=== PATIENT | male | born 1970 | race Caucasian/White ===

== ENCOUNTER 2022-03-06 01:27 | Inpatient (IN) | payer OTHER ==
[2022-03-06] MEDS ORDERED: LORazepam 2 MG/ML INJ ONE (02:30)
[2022-03-06] MEDS ORDERED: ONDANSETRON 4 MG/2 ML VIAL ONE (02:30)
[2022-03-06] MEDS ORDERED: SODIUM CHLORIDE 0.9% 1,000 ML BAG ONE (02:40)
[2022-03-06 06:02] LABS: ALT 61 U/L (4-49); AST 71 U/L (17-59); African American GFR (CKD) >90 (>60 ml/min/1.73 sqM); Albumin 4.5 g/dL (3.5-5.0); Albumin/Globulin Ratio 1.8; Alcohol <10 mg/dL; Alkaline Phosphatase 54 U/L (38-126); Anion Gap 11 mmol/L; Blood Urea Nitrogen 11 mg/dL (9-20); Calcium 9.5 mg/dL (8.4-10.2); Carbon Dioxide 26 mmol/L (22-30); Chloride 97 mmol/L (98-107); Globulin 2.5 g/dL; Glucose 88 mg/dL (74-99); Lipase 188 U/L (23-300); Magnesium 1.9 mg/dL (1.6-2.3); Non-African American GFR(CKD) >90 (>60 ml/min/1.73 sqM); Phosphorus 4.3 mg/dL (2.5-4.5); Sodium 134 mmol/L (137-145); Total Bilirubin 1.3 mg/dL (0.2-1.3)
[2022-03-06] MEDS ORDERED: LORazepam 2 MG/ML INJ IV PRN ×4 (06:17)
[2022-03-06 06:27] LABS: Basophils % (A) 1 %; Eosinophils # (A) 0.1 k/uL (0-0.7); Eosinophils % (A) 3 %; HCT 38.1 % (39.0-53.0); HGB 12.8 gm/dL (13.0-17.5); Lymphocytes % (A) 24 %; MCHC 33.7 g/dL (31.0-37.0); Macrocytosis Slight; Mean Platelet Volume 8.6; Monocytes # (A) 0.3 k/uL (0-1.0); Monocytes % (A) 6 %; Neutrophils # (A) 2.5 k/uL (1.3-7.7); Neutrophils % (A) 63 %; Platelet Count 226 k/uL (150-450); RBC 3.66 m/uL (4.30-5.90); RDW 12.3 % (11.5-15.5)
[2022-03-06] MEDS ORDERED: THIAMINE 100 MG/ML 2 ML VIAL IM STA (07:16)
[2022-03-06] MEDS: MULTIVITAMINS, THERA 1 EACH TAB PO SCH (09:08)
[2022-03-06] MEDS: FOLIC ACID 1 MG TAB PO SCH (09:08)
[2022-03-06] MEDS: THIAMINE 100 MG TAB PO SCH ×2 (09:09→09:11)
[2022-03-06] MEDS ORDERED: IBUPROFEN 600 MG TAB PO PRN (09:41)
--- NOTE | 2022-03-06 09:44 | P.HPIM ---
History of Present Illness This is a pleasant 52 years old male with no significant past medical history. Patient was sent from [place] for alcohol abuse and hallucination. Patient was lying in bed comfortable, sleepy and drowsy and he has received benzodiazepine in the morning shortly before meeting him which may contribute to his sleepiness. Patient himself states that he is been [place] for the last 23 days for alcohol withdrawal. He states that he drinks 3-4 drinks a day. He denies smoking or illicit tracts to me. He denies any chest pain or dyspnea. No headache or dizziness. No weakness or numbness complaints when I saw him. No blurred vision. He is been complaining of from slight primary umbilical abdominal pain about 1- 2/10 in severity this morning but completely resolved by the time I saw him. Abdomen soft. His been complained from some constipation but no vomiting and he tolerates diet. No urinary complaints like urgency or dysuria. On reviewing the record from [place] (patient has been feeling good with no symptoms. Patient has been complaining of from hallucination, branch of a spider is running around and when he turned on the line they disappeared. Also he saw ago under his bed and treated that he can touch. Also has been complaining that his hands has been turning into green color and then go back to their original color when the lights are turned on. Patient so more stress as well as well as an understandable auditory hallucination, he developed heard the word murder Labs showing normal WBCs 4.0 hemoglobin 12.8. Platelet count normal 226. Sodium 134. Risks of BMP is unremarkable Bilirubin 1.3 which is within the reference range. Slightly elevated liver enzymes AST 71 and ALT 61. Lipase normal at 188. Serum alcohol less than 10. Patient was started on CIWA protocol in ED Review of Systems Review of systems CONSTITUTIONAL: No fever, no malaise, no fatigue. HEENT: No recent visual problems or hearing problems. Denied any sore throat. CARDIOVASCULAR: No orthopnea, PND, no palpitations, no syncope. PULMONARY: No shortness of breath, no cough, no hemoptysis. GASTROINTESTINAL: No diarrhea, no nausea, no vomiting, no abdominal pain. Normoactive bowel sounds. NEUROLOGICAL: No headaches, no weakness, no numbness. HEMATOLOGICAL: Denies any bleeding or petechiae. GENITOURINARY: Denies any burning micturition, frequency, or urgency. MUSCULOSKELETAL/RHEUMATOLOGICAL: Denies any joint pain, swelling, or any muscle pain. ENDOCRINE: Denies any polyuria or polydipsia. Medications and Allergies Home Medications Medication Instructions Recorded Confirmed Type Acetaminophen Tab [Tylenol] 650 mg PO TID 03/06/22 03/06/22 History Calcium Carb/Mag Ox/Zinc Sulf 1 tab PO TID 03/06/22 03/06/22 History [Oux-Xya-Kzrq 334-134-5 mg Tab] Chlorpheniramine Maleate 4 mg PO QID PRN 03/06/22 03/06/22 History [Chlor-Trimeton] Ibuprofen [Motrin Ib] 600 mg PO Q6H PRN 03/06/22 03/06/22 History LORazepam [Ativan] 1 - 2 mg PO Q4H 03/06/22 03/06/22 History Loperamide HCl [Imodium A-D] 4 mg PO QID PRN 03/06/22 03/06/22 History Magnesium Hydroxide [Milk of 2,400 mg PO BID PRN 03/06/22 03/06/22 History Magnesia] Multivitamins, Thera [Multivitamin 1 tab PO DAILY 03/06/22 03/06/22 History (formulary)] Mylanta 30 ml PO Q4H PRN 03/06/22 03/06/22 History Thiamine [Vitamin B-1] 100 mg PO DAILY 03/06/22 03/06/22 History cloNIDine HCL [Catapres] 0.1 - 0.3 mg PO DAILY PRN 03/06/22 03/06/22 History ondansetron HCL [Zofran] 8 mg PO Q6H 03/06/22 03/06/22 History Allergies Allergy/AdvReac Type Severity Reaction Status Date / Time No Known Allergies Allergy Verified 03/06/22 07:13 Physical Exam GENERAL: The patient is alert and oriented x3, not in any acute distress. Well developed, well nourished. HEENT: Pupils are round and equally reacting to light. EOMI. No scleral icterus. No conjunctival pallor. Normocephalic, atraumatic. No pharyngeal erythema. No thyromegaly. CARDIOVASCULAR: S1 and S2 present. No murmurs, rubs, or gallops. PULMONARY: Chest is clear to auscultation, no wheezing or crackles. ABDOMEN: Soft, nontender, nondistended, normoactive bowel sounds. No palpable organomegaly. MUSCULOSKELETAL: No joint swelling or deformity. EXTREMITIES: No cyanosis, clubbing, or pedal edema. NEUROLOGICAL: Gross neurological examination did not reveal any focal deficits. SKIN: No rashes. no petechiae. Results CBC & Chem 7: 03/06/22 02:25 03/06/22 02:25 Labs: Abnormal Lab Results - Last 24 Hours (Table) 03/06/22 03/06/22 Range/Units 02:25 02:25 RBC 3.66 L (4.30-5.90) m/uL Hgb 12.8 L (13.0-17.5) gm/dL Hct 38.1 L (39.0-53.0) % MCV 104.0 H (80.0-100.0) fL Sodium 134 L (137-145) mmol/L Chloride 97 L (98-107) mmol/L AST 71 H (17-59) U/L ALT 61 H (4-49) U/L Assessment and Plan Assessment: Visual and auditory hallucinations Alcohol abuse at-risk of alcohol withdrawal and delirium tremens Moderately elevated liver enzymes most likely secondary to alcoholic affect possible Hypertension Plan: This is a pleasant 52 years old male with alcoholic intoxication Continue with CIWA protocol Continue with gentle hydration Psychiatry consult home worker consult Labs and medication were reviewed.. Continue same treatment. Continue with symptomatic treatment. Resume home medication. Monitor lytes and vitals. DVT and GI prophylaxis. Further recommendations as per clinical course of the patient DVT prophylaxis: Subcutaneous heparin GI Prophylaxis: Pepcid Prognosis is guarded
[2022-03-06] MEDS: ACETAMINOPHEN TAB 325 MG TAB PO SCH (18:35)
[2022-03-06] MEDS ORDERED: LORazepam 1 MG/0.5 ML VIAL IV PRN (22:44)
[2022-03-06] MEDS: LORazepam 1 MG/0.5 ML VIAL IV PRN (23:15)
[2022-03-06] MEDS ORDERED: ACETAMINOPHEN TAB 325 MG TAB PO PRN (23:24)
--- NOTE | 2022-03-07 01:35 | CONS ---
DATE OF SERVICE: 03/06/2022 CONSULTATION PURPOSE FOR CONSULTATION: Evaluate for confusion and hallucinations. HISTORY OF PRESENTING ILLNESS: The patient is a 52-year-old male. He was referred to [facility] from [place], where he was admitted for alcohol use disorder. According to the medical record, he was in [place] for the last 23 days for a treatment of alcohol withdrawal. He was drinking 3 to 4 drinks a day. Last evening, he apparently began having hallucinations, where he was hearing things and seeing things. He said that the hallucinations were quite intense and presented as a range of many different visions including seeing faces and then seeing monsters and then that evolving into his seen various insects. He said there were activities of spiders that were making webs that he picked up and handled. He reported this to staff, which precipitated his referral to [facility]. He stated to me that he had just entered [place] on Wednesday, which is not in line with the ED record. He says that he drinks about 3/4 of a 5th of alcohol per day. In addition, he smokes marijuana about 1 puff per week by his report. He reports no use of other abusive substances. When I talked to him today, he said that the hallucinations went on for about half an hour and then seemed to dissipate. He reported that he was not having any hallucinations since he has gotten to the hospital. His vital signs since being here have been within the normal range. He said best that he is aware he has not had any issues with his vital signs while he was at [place]. He notes that while at [place], he was started on Ativan. Currently, the patient is not reporting any significant issues with anxiety or depression. He is not reporting any hallucinations or delusional thinking. He is not currently on any psychotropic medications other than having been started on Ativan for detox. He acknowledges that he had some confusion and disorientation when he was at [place], where there was a short period where he was not exactly sure where he was or what the circumstances were. He says that has had also dissipated, and he did not recall any further periods where he was in confusion. The patient notes that he had stopped drinking some years back for about 2 weeks, he did that on his own. He notes that neither then or at any other time has he had any issues with hallucinations. He does not believe he has ever had a diagnosis of delirium tremens. He has not had seizures. MENTAL STATUS EXAM: The patient was sitting on the side of the bed. He gave good eye contact. When I came into the room, he was reading from a book, and that said he was not having trouble with comprehension. He gave a fairly good eye contact. He answered questions appropriately. His thoughts were clear. His affect was in a reasonable range. He seemed to have a relaxed if not friendly manner. His mood was even. He did not appear to be distressed or depressed. There was no indication of thought disorder. He was denying any issues with hallucinations or delusional thinking. He voiced no thoughts of harm. On cognitive exam, he was oriented x3 and alert. He knew the day and date. He was able to tell me the president. He was able to give me the days of the week in reverse order quickly without hesitation. ASSESSMENT: 52-year-old male apparently developed hallucinations either related to detox or alcohol withdrawal. The issues of thought disorder have dissipated. He would be appropriate to be referred back to [place]. He is not needing any further psychiatric intervention. He does not appear to require any psychotropic medications other than what would be indicated for a detox withdrawal protocol. MMODL / IJN: [id number] / MTDD
[2022-03-07] MEDS: LORazepam 1 MG/0.5 ML VIAL IV PRN ×8 (01:56→22:36)
[2022-03-07 08:52] LABS: Basophils # (A) 0.04 X 10*3/uL (0.00-0.10); Basophils % (A) 0.8 %; Eosinophils # (A) 0.12 X 10*3/uL (0.04-0.35); Eosinophils % (A) 2.3 %; HCT 40.1 % (39.6-50.0); HGB 13.4 g/dL (13.0-17.0); Immature Grans, Automated 0.4 %; Lymphocytes # (A) 1.36 X 10*3/uL (0.90-5.00); Lymphocytes % (A) 25.5 %; MCH 34.8 pg (27.0-32.0); MCHC 33.4 g/dL (32.0-37.0); MCV 104.2 fL (80.0-97.0); Mean Platelet Volume 10.3 fL (9.5-12.2); Monocytes # (A) 0.54 X 10*3/uL (0.20-1.00); Monocytes % (A) 10.1 %; NRBC Per 100 WBC 0 /100 WBCS (0.0-0.0); Neutrophils # (A) 3.25 X 10*3/uL (1.80-7.70); Neutrophils % (A) 60.9 %; Platelet Count 274 X 10*3/uL (140-440); RBC 3.85 X 10*6/uL (4.40-5.60); RDW 12.2 % (11.5-14.5); WBC 5.33 X 10*3/uL (4.50-10.00)
[2022-03-07] MEDS ORDERED: THIAMINE 100 MG TAB PO SCH (09:00)
[2022-03-07 09:03] LABS: African American GFR (CKD) 127.5 (60.0-200.0); Albumin 4.8 g/dL (3.8-4.9); Anion Gap 11.6 mmol/L (10.00-18.00); BUN/Creat Ratio 10.43 Ratio (12.00-20.00); Bilirubin, Conjugated 0.28 mg/dL (0.20-0.40); Bilirubin,Unconjugated 0.62 mg/dL (0.20-1.00); Blood Urea Nitrogen 7.3 mg/dL (9.0-27.0); Calcium 9.9 mg/dL (8.7-10.3); Carbon Dioxide 26.4 mmol/L (20.0-27.5); Globulin 2.4 g/dL (1.6-3.3); Potassium 4.2 mmol/L (3.5-5.5); Total Bilirubin 0.9 mg/dL (0.30-1.20); Total Protein 7.2 g/dL (6.2-8.2)
[2022-03-07] MEDS: cloNIDine HCL 0.1 MG TAB PO SCH (10:19)
[2022-03-07] MEDS: FOLIC ACID 1 MG TAB PO SCH (10:19)
[2022-03-07] MEDS: MULTIVITAMINS, THERA 1 EACH TAB PO SCH (10:19)
[2022-03-07] MEDS: ACETAMINOPHEN TAB 325 MG TAB PO SCH (13:58)
--- NOTE | 2022-03-07 16:59 | P.PN ---
Subjective This is a pleasant 52 years old male with no significant past medical history. Patient was sent from [place] for alcohol abuse and hallucination. Patient was lying in bed comfortable, sleepy and drowsy and he has received benzodiazepine in the morning shortly before meeting him which may contribute to his sleepiness. Patient himself states that he is been [place] for the last 23 days for alcohol withdrawal. He states that he drinks 3-4 drinks a day. He denies smoking or illicit tracts to me. He denies any chest pain or dyspnea. No headache or dizziness. No weakness or numbness complaints when I saw him. No blurred vision. He is been complaining of from slight primary umbilical abdominal pain about 1- 2/10 in severity this morning but completely resolved by the time I saw him. Abdomen soft. His been complained from some constipation but no vomiting and he tolerates diet. No urinary complaints like urgency or dysuria. On reviewing the record from [place] (patient has been feeling good with no symptoms. Patient has been complaining of from hallucination, branch of a spider is running around and when he turned on the line they disappeared. Also he saw ago under his bed and treated that he can touch. Also has been complaining that his hands has been turning into green color and then go back to their original color when the lights are turned on. Patient so more stress as well as well as an understandable auditory hallucination, he developed heard the word murder Labs showing normal WBCs 4.0 hemoglobin 12.8. Platelet count normal 226. Sodium 134. Risks of BMP is unremarkable Bilirubin 1.3 which is within the reference range. Slightly elevated liver enzymes AST 71 and ALT 61. Lipase normal at 188. Serum alcohol less than 10. Patient was started on CIWA protocol in ED 02/25/2022 Patient today still undergoing alcohol withdrawal, his CIWA protocol and a scar in the afternoon was 18 although it was less in the morning when he was more, and working his room. Patient condition did not improve with the Ativan IV and he was agitated and confused trying to eat lobe and get out of bed and because of safety we gave him IV Valium. We'll continue close monitoring Repeat labs looks stable at liver enzymes are the same or slightly better. Psychiatric team already evaluated the patient yesterday and they recommended no further psychiatric care and no need for psychiatric medication other than a lcohol withdrawal treatment he's receiving currently. Looks like his hallucination is related to his alcohol withdrawal Objective - Vital Signs Vital signs: Vital Signs Temp 97.7 F 03/07/22 07:24 Pulse 82 03/07/22 07:24 Resp 16 03/07/22 07:24 BP 129/86 03/07/22 07:24 Pulse Ox 97 03/07/22 07:24 FiO2 Intake & Output 03/06/22 03/07/22 03/07/22 18:59 06:59 18:59 Weight 0 g 72.575 kg Other: Voiding Method Toilet # Voids 2 - Exam -GENERAL: The patient is alert and oriented x3, not in any acute distress. Well patient is anxious and agitated HEENT: Pupils are round and equally reacting to light. EOMI. No scleral icterus. No conjunctival pallor. Normocephalic, atraumatic. No pharyngeal erythema. No thyromegaly. CARDIOVASCULAR: S1 and S2 present. No murmurs, rubs, or gallops. PULMONARY: Chest is clear to auscultation, no wheezing or crackles. ABDOMEN: Soft, nontender, nondistended, normoactive bowel sounds. No palpable organomegaly. MUSCULOSKELETAL: No joint swelling or deformity. -EXTREMITIES: No cyanosis, clubbing, or pedal edema. Tremor NEUROLOGICAL: Gross neurological examination did not reveal any focal deficits. SKIN: No rashes. no petechiae. - Labs CBC & Chem 7: 03/07/22 06:08 03/07/22 06:08 Labs: Abnormal Lab Results - Last 24 Hours (Table) 03/07/22 03/07/22 Range/Units 06:08 06:08 RBC 3.85 L (4.40-5.60) X 10*6/uL MCV 104.2 H (80.0-97.0) fL MCH 34.8 H (27.0-32.0) pg BUN 7.3 L (9.0-27.0) mg/dL BUN/Creatinine Ratio 10.43 L (12.00-20.00) Ratio AST 60 H (14-35) U/L ALT 64 H (10-49) U/L Assessment and Plan Assessment: Visual and auditory hallucinations, related to alcohol withdrawal Alcohol abuse at-risk of alcohol withdrawal and delirium tremens Moderately elevated liver enzymes most likely secondary to alcoholic affect possible Hypertension Plan: This is a pleasant 52 years old male with alcoholic intoxication Continue with CIWA protocol. At volume IV when necessary Continue with gentle hydration Psychiatry consult is appreciated, no further psychotic input egg worker consult Labs and medication were reviewed.. Continue same treatment. Continue with symptomatic treatment. Resume home medication. Monitor lytes and vitals. DVT and GI prophylaxis. Further recommendations as per clinical course of the patient DVT prophylaxis: Subcutaneous heparin GI Prophylaxis: Pepcid Prognosis is guarded
[2022-03-08] MEDS ORDERED: QUEtiapine 25 MG TAB PO SCH (00:15)
[2022-03-08] MEDS: LORazepam 1 MG/0.5 ML VIAL IV PRN ×8 (01:28→22:35)
[2022-03-08] MEDS ORDERED: HALOPERIDOL LACTATE 5 MG/ML 1 ML VIAL IM STA (01:49)
[2022-03-08] MEDS ORDERED: ZIPRASIDONE 20 MG VIAL IM STA (02:48)
[2022-03-08] MEDS ORDERED: LORazepam 1 MG/0.5 ML VIAL IV STA (05:18)
[2022-03-08] MEDS ORDERED: diphenhydrAMINE 50 MG/ML 1 ML VIAL IVP PRN (08:24)
--- NOTE | 2022-03-08 10:25 | P.CNPUL ---
History of Present Illness Consult date: 03/08/22 Chief complaint: Altered mentation, delirium History of present illness: A 52-year-old male patient who got transferredn To the intensive care unit because of difficulties taking care of this patient on the floor, as the patient was significantly agitated and has required a total of 2 mg of Ativan, Valium 5 mg of Valium and 25 mg of Benadryl. He was significantly agitated and restless and he was placed in restraints and he was brought into the intensive care unit. The patient was placed as he will protocol. He became progressively more violent and agitated and he got transferred to the intensive care unit. He is hemodynamically stable. He is on room air oxygen. His blood work from yesterday shows a white cell count of 5.3 with a hemoglobin of 15.4 and a platelet count of 274, electrolytes are all within normal limits, alcohol level is low, less than 10, denies having any other substance abuse, LFTs show an AST of 60, ALT of 64 and bilirubin of 0.9. Magnesium levels at 1.9. He is currently on Catapres 0.1 mg daily, Valium 5 mg every 4 hours when necessary, Benadryl 25 mg every 8 hours when necessary, folic acid 1 mg by mouth daily, Ativan per protocol and is also on Seroquel 25 mg at bedtime and vitamin B-1 Review of Systems ROS unobtainable: due to mental status Past Medical History Past Medical History: Atrial Flutter, Hyperlipidemia Additional Past Medical History / Comment(s): emphysema History of Any Multi-Drug Resistant Organisms: None Reported Additional Past Surgical History / Comment(s): Had abcess on neck and drained it; stitches for left pinky in past Past Anesthesia/Blood Transfusion Reactions: No Reported Reaction Past Psychological History: Anxiety, Panic Disorder Additional Psychological History / Comment(s): OCD Smoking Status: Never smoker Past Alcohol Use History: Heavy Additional Past Alcohol Use History / Comment(s): Patient drinks 1/2 pint in morning; and full pint at night with 3 beers daily Past Drug Use History: Marijuana Medications and Allergies Home Medications Medication Instructions Recorded Confirmed Type Acetaminophen Tab [Tylenol] 650 mg PO TID 03/06/22 03/06/22 History Calcium Carb/Mag Ox/Zinc Sulf 1 tab PO TID 03/06/22 03/06/22 History [Mjt-Skt-Panf 334-134-5 mg Tab] Chlorpheniramine Maleate 4 mg PO QID PRN 03/06/22 03/06/22 History [Chlor-Trimeton] Ibuprofen [Motrin Ib] 600 mg PO Q6H PRN 03/06/22 03/06/22 History LORazepam [Ativan] 1 - 2 mg PO Q4H 03/06/22 03/06/22 History Loperamide HCl [Imodium A-D] 4 mg PO QID PRN 03/06/22 03/06/22 History Magnesium Hydroxide [Milk of 2,400 mg PO BID PRN 03/06/22 03/06/22 History Magnesia] Multivitamins, Thera [Multivitamin 1 tab PO DAILY 03/06/22 03/06/22 History (formulary)] Mylanta 30 ml PO Q4H PRN 03/06/22 03/06/22 History Thiamine [Vitamin B-1] 100 mg PO DAILY 03/06/22 03/06/22 History cloNIDine HCL [Catapres] 0.1 - 0.3 mg PO DAILY PRN 03/06/22 03/06/22 History ondansetron HCL [Zofran] 8 mg PO Q6H 03/06/22 03/06/22 History Allergies Allergy/AdvReac Type Severity Reaction Status Date / Time No Known Allergies Allergy Verified 03/06/22 07:13 Physical Exam Vitals: Vital Signs Temp Pulse Resp BP Pulse Ox 03/08/22 09:38 99 16 141/93 97 03/08/22 08:17 98 122/72 98 03/08/22 06:41 98.5 F 84 16 03/08/22 06:24 100 16 116/82 97 03/08/22 05:56 89 17 138/91 98 03/08/22 03:17 66 18 168/93 97 03/08/22 02:28 98.4 F 108 H 20 136/86 98 03/08/22 02:18 98.4 F 108 H 20 136/86 98 03/07/22 20:12 97.2 F L 76 18 136/93 100 03/07/22 20:00 66 18 03/07/22 14:00 97.9 F 98 18 107/72 100 Intake and Output 10/03/08/22 03/08/22 22:59 06:59 14:59 Intake Total 1080 Balance 1080 Intake: Oral 1080 Other: Voiding Method Toilet # Voids 4 1 Patient is currently on room air oxygen, confused, having occasional hydrocephalus and hallucination and is very violent. The patient appeared well nourished and normally developed. Vital signs as documented. Head exam is unremarkable. No scleral icterus or corneal arcus noted. Neck is without jugular venous distension, thyromegaly, or carotid bruits. Carotid upstrokes are brisk bilaterally. Lungs are clear to auscultation and percussion. Cardiac exam reveals the PMI to be normally sized and situated. Rhythm is regular. First and second heart sounds normal. No murmurs, rubs or gallops. Abdominal exam reveals normal bowel sounds, no masses, no organomegaly and no aortic enlargement. Extremities are nonedematous and both femoral and pedal pulses are normal.Examination of the skin revealed no evidence of sig nificant rashes, suspicious appearing nevi or other concerning lesions. Neurologically shaky and confused. He does have some resting tremors. Moving all 4 extremities. Without equal reactive to light. No neck stiffness. Results - Laboratory Findings CBC and BMP: 03/07/22 06:08 03/07/22 06:08 Abnormal lab findings: Abnormal Labs 03/06/22 03/06/22 03/07/22 02:25 02:25 06:08 RBC 3.66 L 3.85 L Hgb 12.8 L Hct 38.1 L MCV 104.0 H 104.2 H MCH 34.8 H Sodium 134 L Chloride 97 L BUN BUN/Creatinine Ratio AST 71 H ALT 61 H 03/07/22 06:08 RBC Hgb Hct MCV MCH Sodium Chloride BUN 7.3 L BUN/Creatinine Ratio 10.43 L AST 60 H ALT 64 H Assessment and Plan Plan: Acute delirium tremens secondary to alcohol withdrawal Alcoholism Hallucinations secondary to above Agitation secondary to above History of atrial flutter History of OCD Hyperlipidemia Plan Continue IV fluids along with thiamine and folate supplements. IV fluids are running at the rate of 75 mL an hour The patient will be started on Precedex drip for agitation Continue the Ativan as needed per protocol Monitor electrolytes Lovenox 40 mg subcu for prophylaxis IV Protonix Seroquel 50 mg at bedtime Monitor electrolytes Urine drug screen We'll continue to follow
[2022-03-08 10:26] LABS: Glucose,Whole Blood 94 mg/dL (70-110)
[2022-03-08] MEDS: DEXMEDETOMIDINE/0.9% NACL(PMX) 400 MCG in EMPTY BAG 1 BAG IV SCH ×4 (10:30→22:31)
[2022-03-08] MEDS: cloNIDine HCL 0.1 MG TAB PO SCH (11:42)
[2022-03-08] MEDS: 1: MVI, ADULT NO.4 WITH VIT K 10 ML, THIAMINE 100 MG, FOLIC ACID 1 MG in SODIUM CHLORIDE IV SCH ×4 (11:43)
[2022-03-08] MEDS: PANTOPRAZOLE 40 MG/10 ML VIAL IVP SCH (12:08)
[2022-03-08] MEDS: ENOXAPARIN 40 MG/0.4 ML SYRINGE SQ SCH (12:08)
--- NOTE | 2022-03-08 17:56 | P.PN ---
Subjective This is a pleasant 52 years old male with no significant past medical history. Patient was sent from [facility] for alcohol abuse and hallucination. Patient was lying in bed comfortable, sleepy and drowsy and he has received benzodiazepine in the morning shortly before meeting him which may contribute to his sleepiness. Patient himself states that he is been [facility] for the last 23 days for alcohol withdrawal. He states that he drinks 3-4 drinks a day. He denies smoking or illicit tracts to me. He denies any chest pain or dyspnea. No headache or dizziness. No weakness or numbness complaints when I saw him. No blurred vision. He is been complaining of from slight primary umbilical abdominal pain about 1- 2/10 in severity this morning but completely resolved by the time I saw him. Abdomen soft. His been complained from some constipation but no vomiting and he tolerates diet. No urinary complaints like urgency or dysuria. On reviewing the record from [facility] (patient has been feeling good with no symptoms. Patient has been complaining of from hallucination, branch of a spider is running around and when he turned on the line they disappeared. Also he saw ago under his bed and treated that he can touch. Also has been complaining that his hands has been turning into green color and then go back to their original color when the lights are turned on. Patient so more stress as well as well as an understandable auditory hallucination, he developed heard the word murder Labs showing normal WBCs 4.0 hemoglobin 12.8. Platelet count normal 226. Sodium 134. Risks of BMP is unremarkable Bilirubin 1.3 which is within the reference range. Slightly elevated liver enzymes AST 71 and ALT 61. Lipase normal at 188. Serum alcohol less than 10. Patient was started on CIWA protocol in ED 03/07/2022 Patient today still undergoing alcohol withdrawal, his CIWA protocol and a scar in the afternoon was 18 although it was less in the morning when he was more, and working his room. Patient condition did not improve with the Ativan IV and he was agitated and confused trying to eat lobe and get out of bed and because of safety we gave him IV Valium. We'll continue close monitoring Repeat labs looks stable at liver enzymes are the same or slightly better. Psychiatric team already evaluated the patient yesterday and they recommended no further psychiatric care and no need for psychiatric medication other than a lcohol withdrawal treatment he's receiving currently. Looks like his hallucination is related to his alcohol withdrawal 03/08/2022 Patient was very agitated today very confused, out of control, Mr. Jackson was called for him 3 times overnight and twice in the morning despite multiple medications Patient was getting Ativan when necessary per protocol, also increasing dose of volume 5 mg every 4 hours and Benadryl when necessary Presents have to be placed for him for safety for self and others Staff felt hard for them to deal with the patient while on the general floor, patient was sent to the intensive care unit with pulmonary/critical care team consult Objective - Vital Signs Vital signs: Vital Signs Temp 98.2 F 03/08/22 10:30 Pulse 55 L 03/08/22 15:00 Resp 10 L 03/08/22 15:00 BP 121/94 03/08/22 15:00 Pulse Ox 100 03/08/22 15:00 FiO2 Intake & Output 03/07/22 03/08/22 03/08/22 18:59 06:59 18:59 Intake Total 1080 569.691 Output Total 695 Balance 1080 -125.309 Intake: IV 480 Mvi, Adult No.4 with Vit 300 K 10 ml Thiamine 100 mg Folic Acid 1 mg In Sodium Chloride 0.9% 1,000 ml @ 75 mls/hr IV .BY DURATION [facility] Rx#: [id number] Sodium Chloride 0.9% 1, 180 000 ml @ 75 mls/hr IV .BY DURATION [facility] Rx#: [id number] Intake, IV Titration 89.691 Amount Dexmedetomidine/0.9% NaCl 89.691 (Pmx) 400 mcg In Empty Bag 1 bag @ 0.5 MCG/KG/HR 9.072 mls/hr IV .Q11H2M [facility] Rx#:[id number] Oral 1080 Output: Urine 695 Other: Voiding Method Toilet Indwelling Catheter # Voids 4 1 - Exam --GENERAL: The patient is confused and agitated, combative at times, has to be restrained at sometimes HEENT: Pupils are round and equally reacting to light. EOMI. No scleral icterus. No conjunctival pallor. Normocephalic, atraumatic. No pharyngeal erythema. No thyromegaly. CARDIOVASCULAR: S1 and S2 present. No murmurs, rubs, or gallops. PULMONARY: Chest is clear to auscultation, no wheezing or crackles. ABDOMEN: Soft, nontender, nondistended, normoactive bowel sounds. No palpable organomegaly. MUSCULOSKELETAL: No joint swelling or deformity. -EXTREMITIES: No cyanosis, clubbing, or pedal edema. Tremor NEUROLOGICAL: Gross neurological examination did not reveal any focal deficits. SKIN: No rashes. no petechiae. - Labs CBC & Chem 7: 03/07/22 06:08 03/07/22 06:08 Assessment and Plan Assessment: Severe Delirium tremens with agitation Visual and auditory hallucinations, related to alcohol withdrawal Alcohol abuse at-risk of alcohol withdrawal and delirium tremens Moderately elevated liver enzymes most likely secondary to alcoholic affect possible Hypertension Plan: This is a pleasant 52 years old male with alcoholic intoxication Continue with CIWA protocol. 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 Continue same treatment. Continue with symptomatic treatment. Resume home medication. Monitor lytes and vitals. DVT and GI prophylaxis. Further recommendations as per clinical course of the patient DVT prophylaxis: Subcutaneous Lovenox GI Prophylaxis: Ppi Prognosis is guarded
[2022-03-08] MEDS: QUEtiapine 50 MG TAB PO SCH (21:07)
[2022-03-09] MEDS: 1: MVI, ADULT NO.4 WITH VIT K 10 ML, THIAMINE 100 MG, FOLIC ACID 1 MG in SODIUM CHLORIDE IV SCH ×8 (00:55→13:28)
[2022-03-09] MEDS: LORazepam 1 MG/0.5 ML VIAL IV PRN ×2 (03:00→06:21)
[2022-03-09] MEDS: DEXMEDETOMIDINE/0.9% NACL(PMX) 400 MCG in EMPTY BAG 1 BAG IV SCH ×4 (03:04→15:45)
[2022-03-09 07:34] LABS: Basophils # (A) 0.1 k/uL (0-0.2); Basophils % (A) 1 %; Eosinophils # (A) 0.1 k/uL (0-0.7); Eosinophils % (A) 2 %; HCT 41.3 % (39.0-53.0); HGB 13.6 gm/dL (13.0-17.5); Lymphocytes # (A) 0.8 k/uL (1.0-4.8); Lymphocytes % (A) 10 %; MCV 106.1 fL (80.0-100.0); Macrocytosis Slight; Mean Platelet Volume 8.3; Monocytes # (A) 0.4 k/uL (0-1.0); Monocytes % (A) 6 %; Neutrophils % (A) 80 %; Platelet Count 229 k/uL (150-450); RBC 3.89 m/uL (4.30-5.90); RDW 12.3 % (11.5-15.5); WBC 7.5 k/uL (3.8-10.6)
[2022-03-09 07:42] LABS: African American GFR (CKD) >90 (>60 ml/min/1.73 sqM); Anion Gap 12 mmol/L; Blood Urea Nitrogen 9 mg/dL (9-20); Calcium 9.2 mg/dL (8.4-10.2); Carbon Dioxide 21 mmol/L (22-30); Chloride 109 mmol/L (98-107); Glucose 83 mg/dL (74-99); Non-African American GFR(CKD) >90 (>60 ml/min/1.73 sqM); Potassium 4.2 mmol/L (3.5-5.1); Sodium 142 mmol/L (137-145)
[2022-03-09] MEDS: PANTOPRAZOLE 40 MG/10 ML VIAL IVP SCH (09:05)
[2022-03-09] MEDS: ENOXAPARIN 40 MG/0.4 ML SYRINGE SQ SCH (09:05)
[2022-03-09] MEDS: cloNIDine HCL 0.1 MG TAB PO SCH (09:06)
--- NOTE | 2022-03-09 11:59 | P.PN ---
Subjective Progress Note Date: 03/09/22 Principal diagnosis: Acute delirium tremens secondary to alcohol withdrawal A 52-year-old male patient who got transferredn To the intensive care unit because of difficulties taking care of this patient on the floor, as the patient was significantly agitated and has required a total of 2 mg of Ativan, Valium 5 mg of Valium and 25 mg of Benadryl. He was significantly agitated and restless and he was placed in restraints and he was brought into the intensive care unit. The patient was placed as he will protocol. He became progressively more violent and agitated and he got transferred to the intensive care unit. He is hemodynamically stable. He is on room air oxygen. His blood work from yesterday shows a white cell count of 5.3 with a hemoglobin of 15.4 and a plate let count of 274, electrolytes are all within normal limits, alcohol level is low, less than 10, denies having any other substance abuse, LFTs show an AST of 60, ALT of 64 and bilirubin of 0.9. Magnesium levels at 1.9. He is currently on Catapres 0.1 mg daily, Valium 5 mg every 4 hours when necessary, Benadryl 25 mg every 8 hours when necessary, folic acid 1 mg by mouth daily, Ativan per protocol and is also on Seroquel 25 mg at bedtime and vitamin B-1 Reevaluated today on , patient remains in the ICU, sedated, he is on Precedex at 1.2 mcg/kg/h, he is on the alcohol withdrawal protocol, patient is on room air, does not seem to be in any distress, and his delirium is quite under control with Precedex. CBC is relatively normal electrocerebral normal renal profile is normal Objective - Vital Signs Vital signs: Vital Signs Temp 99.0 F 03/09/22 08:00 Pulse 65 03/09/22 11:00 Resp 13 03/09/22 11:00 BP 129/84 03/09/22 11:00 Pulse Ox 98 03/09/22 11:00 FiO2 Intake & Output 03/08/22 03/09/22 03/09/22 18:59 06:59 18:59 Intake Total 301.980 1881.674 964.963 Output Total 905 835 430 Balance -6.325 1414.674 534.963 Weight 72.1 kg Intake: IV 715 960 375 Mvi, Adult No.4 with Vit 375 450 K 10 ml Thiamine 100 mg Folic Acid 1 mg In Sodium Chloride 0.9% 1,000 ml @ 75 mls/hr IV .BY DURATION [facility] Rx#: [id number] Sodium Chloride 0.9% 1, 340 510 375 000 ml @ 75 mls/hr IV .BY DURATION [facility] Rx#: [id number] Intake, IV Titration 812.120 9622.674 89.963 Amount Dexmedetomidine/0.9% NaCl 183.675 278.474 89.963 (Pmx) 400 mcg In Empty Bag 1 bag @ 0.5 MCG/KG/HR 9.072 mls/hr IV .Q11H2M [facility] Rx#:[id number] Mvi, Adult No.4 with Vit 1011.2 K 10 ml Thiamine 100 mg Folic Acid 1 mg In Sodium Chloride 0.9% 1,000 ml @ 75 mls/hr IV .BY DURATION [facility] Rx#: [id number] Oral 500 Output: Urine 905 835 430 Other: Voiding Method Indwelling Catheter Indwelling Catheter Indwelling Catheter - Exam Physical Exam: Revealed 52-year-old white male in no distress Head: Atraumatic, normocephalic HEENT:[Neck is supple.] [No neck masses.] [No thyromegaly.] [No JVD.] Chest: [Clear throughout, no crackles, no rhonchi, no wheezes.] Cardiac Exam: [Normal S1 and S2, no S3 gallop, no murmur.] Abdomen: [Soft, nontender, no megaly, no rebound, no guarding, normal bowel sounds.] Extremities: [No clubbing, no edema, no cyanosis.] Neurological Exam: Sedated, on Precedex, could not fully assess. Psychiatric: Could not fully assess. Skin: No rashes. - Labs CBC & Chem 7: 03/09/22 07:14 03/09/22 07:14 Labs: Abnormal Lab Results - Last 24 Hours (Table) 03/09/22 03/09/22 Range/Units 07:14 07:14 RBC 3.89 L (4.30-5.90) m/uL MCV 106.1 H (80.0-100.0) fL Lymphocytes # 0.8 L (1.0-4.8) k/uL Chloride 109 H (98-107) mmol/L Carbon Dioxide 21 L (22-30) mmol/L Creatinine 0.63 L (0.66-1.25) mg/dL Assessment and Plan Assessment: Impression: Acute delirium tremens secondary to alcohol withdrawal History of alcoholism History of atrial flutter History of obsessive-compulsive disorder Dyslipidemia Recommendation: Continue to monitor in the ICU Continue IV fluids Continue Precedex Continue all withdrawal protocol Continue Lovenox and Protonix Continue Seroquel at bedtime 50 mg We will continue to follow. Time with Patient: Less than 30
[2022-03-09] MEDS ORDERED: 1: THIAMINE 100 MG, FOLIC ACID 1 MG in SODIUM CHLORIDE 0.9% 1,000 ML 2: SODIUM CHLORIDE IVPB SCH (13:20)
[2022-03-09] MEDS: QUEtiapine 50 MG TAB PO SCH (20:20)
--- NOTE | 2022-03-09 23:51 | P.PN ---
Subjective This is a pleasant 52 years old male with no significant past medical history. Patient was sent from [place] for alcohol abuse and hallucination. Patient was lying in bed comfortable, sleepy and drowsy and he has received benzodiazepine in the morning shortly before meeting him which may contribute to his sleepiness. Patient himself states that he is been [facility] for the last 23 days for alcohol withdrawal. He states that he drinks 3-4 drinks a day. He denies smoking or illicit tracts to me. He denies any chest pain or dyspnea. No headache or dizziness. No weakness or numbness complaints when I saw him. No blurred vision. He is been complaining of from slight primary umbilical abdominal pain about 1- 2/10 in severity this morning but completely resolved by the time I saw him. Abdomen soft. His been complained from some constipation but no vomiting and he tolerates diet. No urinary complaints like urgency or dysuria. On reviewing the record from [place] (patient has been feeling good with no symptoms. Patient has been complaining of from hallucination, branch of a spider is running around and when he turned on the line they disappeared. Also he saw ago under his bed and treated that he can touch. Also has been complaining that his hands has been turning into green color and then go back to their original color when the lights are turned on. Patient so more stress as well as well as an understandable auditory hallucination, he developed heard the word murder Labs showing normal WBCs 4.0 hemoglobin 12.8. Platelet count normal 226. Sodium 134. Risks of BMP is unremarkable Bilirubin 1.3 which is within the reference range. Slightly elevated liver enzymes AST 71 and ALT 61. Lipase normal at 188. Serum alcohol less than 10. Patient was started on CIWA protocol in ED 03/07/2022 Patient today still undergoing alcohol withdrawal, his CIWA protocol and a scar in the afternoon was 18 although it was less in the morning when he was more, and working his room. Patient condition did not improve with the Ativan IV and he was agitated and confused trying to eat lobe and get out of bed and because of safety we gave him IV Valium. We'll continue close monitoring Repeat labs looks stable at liver enzymes are the same or slightly better. Psychiatric team already evaluated the patient yesterday and they recommended no further psychiatric care and no need for psychiatric medication other than a lcohol withdrawal treatment he's receiving currently. Looks like his hallucination is related to his alcohol withdrawal 03/08/2022 Patient was very agitated today very confused, out of control, Mr. Jackson was called for him 3 times overnight and twice in the morning despite multiple medications Patient was getting Ativan when necessary per protocol, also increasing dose of volume 5 mg every 4 hours and Benadryl when necessary Presents have to be placed for him for safety for self and others Staff felt hard for them to deal with the patient while on the general floor, patient was sent to the intensive care unit with pulmonary/critical care team consult 03/09/2022 Patient is awake alert, she was confused and disoriented to place, patient was updated upon the location however he is oriented about the year, person and his illness He looks lethargic and got combative at times. History of sterile symptoms looks well controlled with Precedex and other medication Continue with CIWA protocol and pain Objective - Vital Signs Vital signs: Vital Signs Temp 100.3 F H 03/09/22 12:00 Pulse 76 03/09/22 12:00 Resp 18 03/09/22 12:00 BP 122/73 03/09/22 12:00 Pulse Ox 98 03/09/22 12:00 FiO2 Intake & Output 03/08/22 03/09/22 03/09/22 18:59 06:59 18:59 Intake Total 659.889 0697.674 1005.726 Output Total 905 835 430 Balance -6.325 1414.674 575.726 Weight 72.1 kg Intake: IV 715 960 375 Mvi, Adult No.4 with Vit 375 450 K 10 ml Thiamine 100 mg Folic Acid 1 mg In Sodium Chloride 0.9% 1,000 ml @ 75 mls/hr IV .BY DURATION [facility] Rx#: [id number] Sodium Chloride 0.9% 1, 340 510 375 000 ml @ 75 mls/hr IV .BY DURATION [facility] Rx#: [id number] Intake, IV Titration 424.026 0133.674 130.726 Amount Dexmedetomidine/0.9% NaCl 183.675 278.474 130.726 (Pmx) 400 mcg In Empty Bag 1 bag @ 0.5 MCG/KG/HR 9.072 mls/hr IV .Q11H2M [facility] Rx#:[id number] Mvi, Adult No.4 with Vit 1011.2 K 10 ml Thiamine 100 mg Folic Acid 1 mg In Sodium Chloride 0.9% 1,000 ml @ 75 mls/hr IV .BY DURATION [facility] Rx#: [id number] Oral 500 Output: Urine 905 835 430 Other: Voiding Method Indwelling Catheter Indwelling Catheter Indwelling Catheter - Exam --GENERAL: The patient is confused and agitated, combative at times, has to be restrained at sometimes HEENT: Pupils are round and equally reacting to light. EOMI. No scleral icterus. No conjunctival pallor. Normocephalic, atraumatic. No pharyngeal erythema. No thyromegaly. CARDIOVASCULAR: S1 and S2 present. No murmurs, rubs, or gallops. PULMONARY: Chest is clear to auscultation, no wheezing or crackles. ABDOMEN: Soft, nontender, nondistended, normoactive bowel sounds. No palpable organomegaly. MUSCULOSKELETAL: No joint swelling or deformity. -EXTREMITIES: No cyanosis, clubbing, or pedal edema. Tremor NEUROLOGICAL: Gross neurological examination did not reveal any focal deficits. SKIN: No rashes. no petechiae. - Labs CBC & Chem 7: 03/09/22 07:14 03/09/22 07:14 Labs: Abnormal Lab Results - Last 24 Hours (Table) 03/09/22 03/09/22 Range/Units 07:14 07:14 RBC 3.89 L (4.30-5.90) m/uL MCV 106.1 H (80.0-100.0) fL Lymphocytes # 0.8 L (1.0-4.8) k/uL Chloride 109 H (98-107) mmol/L Carbon Dioxide 21 L (22-30) mmol/L Creatinine 0.63 L (0.66-1.25) mg/dL Assessment and Plan Assessment: Severe Delirium tremens with agitation Visual and auditory hallucinations, related to alcohol withdrawal Alcohol abuse at-risk of alcohol withdrawal and delirium tremens Moderately elevated liver enzymes most likely secondary to alcoholic affect possible Hypertension Plan: This is a pleasant 52 years old male with alcoholic intoxication Continue with CIWA protocol. 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 Continue same treatment. Continue with symptomatic treatment. Resume home medication. Monitor lytes and vitals. DVT and GI prophylaxis. Further recommendations as per clinical course of the patient DVT prophylaxis: Subcutaneous Lovenox GI Prophylaxis: Ppi Prognosis is guarded
[2022-03-10] MEDS: 1: MVI, ADULT NO.4 WITH VIT K 10 ML, THIAMINE 100 MG, FOLIC ACID 1 MG in SODIUM CHLORIDE IV SCH ×8 (02:49→16:37)
[2022-03-10 04:29] LABS: Basophils % (A) 1 %; Eosinophils # (A) 0.1 k/uL (0-0.7); Eosinophils % (A) 1 %; HCT 39.5 % (39.0-53.0); HGB 13.3 gm/dL (13.0-17.5); Lymphocytes # (A) 0.9 k/uL (1.0-4.8); Lymphocytes % (A) 10 %; MCH 35.6 pg (25.0-35.0); MCHC 33.6 g/dL (31.0-37.0); Macrocytosis Slight; Mean Platelet Volume 8.4; Monocytes # (A) 0.6 k/uL (0-1.0); Monocytes % (A) 7 %; Neutrophils # (A) 6.9 k/uL (1.3-7.7); Neutrophils % (A) 79 %; Platelet Count 235 k/uL (150-450); RBC 3.73 m/uL (4.30-5.90); RDW 11.7 % (11.5-15.5); WBC 8.7 k/uL (3.8-10.6)
[2022-03-10 04:40] LABS: ALT 50 U/L (4-49); AST 45 U/L (17-59); African American GFR (CKD) >90 (>60 ml/min/1.73 sqM); Albumin 4.1 g/dL (3.5-5.0); Alkaline Phosphatase 49 U/L (38-126); Anion Gap 13 mmol/L; Blood Urea Nitrogen 6 mg/dL (9-20); Calcium 8.9 mg/dL (8.4-10.2); Carbon Dioxide 23 mmol/L (22-30); Chloride 101 mmol/L (98-107); Glucose 92 mg/dL (74-99); Non-African American GFR(CKD) >90 (>60 ml/min/1.73 sqM); Potassium 3.6 mmol/L (3.5-5.1); Sodium 137 mmol/L (137-145); Total Bilirubin 1.4 mg/dL (0.2-1.3); Total Protein 6.7 g/dL (6.3-8.2)
[2022-03-10] MEDS ORDERED: Potassium Replacement Protocol 1 EACH MISC MISCELLANE PRN (04:51)
[2022-03-10] MEDS ORDERED: POTASSIUM CHLORIDE ER 20 MEQ TAB.ER PO SCH (05:00)
[2022-03-10] MEDS: cloNIDine HCL 0.1 MG TAB PO SCH (09:36)
[2022-03-10] MEDS: ENOXAPARIN 40 MG/0.4 ML SYRINGE SQ SCH (09:36)
[2022-03-10] MEDS: PANTOPRAZOLE 40 MG/10 ML VIAL IVP SCH (09:36)
[2022-03-10] MEDS: NICOTINE 21MG/24HR PATCH TRANSDERM SCH ×2 (09:37→09:43)
--- NOTE | 2022-03-10 11:39 | P.PN ---
Subjective Progress Note Date: 03/10/22 Principal diagnosis: Acute delirium tremens secondary to alcohol withdrawal A 52-year-old male patient who got transferredn To the intensive care unit because of difficulties taking care of this patient on the floor, as the patient was significantly agitated and has required a total of 2 mg of Ativan, Valium 5 mg of Valium and 25 mg of Benadryl. He was significantly agitated and restless and he was placed in restraints and he was brought into the intensive care unit. The patient was placed as he will protocol. He became progressively more violent and agitated and he got transferred to the intensive care unit. He is hemodynamically stable. He is on room air oxygen. His blood work from yesterday shows a white cell count of 5.3 with a hemoglobin of 15.4 and a plate let count of 274, electrolytes are all within normal limits, alcohol level is low, less than 10, denies having any other substance abuse, LFTs show an AST of 60, ALT of 64 and bilirubin of 0.9. Magnesium levels at 1.9. He is currently on Catapres 0.1 mg daily, Valium 5 mg every 4 hours when necessary, Benadryl 25 mg every 8 hours when necessary, folic acid 1 mg by mouth daily, Ativan per protocol and is also on Seroquel 25 mg at bedtime and vitamin B-1 Reevaluated today on , patient remains in the ICU, sedated, he is on Precedex at 1.2 mcg/kg/h, he is on the alcohol withdrawal protocol, patient is on room air, does not seem to be in any distress, and his delirium is quite under control with Precedex. CBC is relatively normal electrocerebral normal renal profile is normal Reevaluated today on 03/10/22, patient is in the ICU, he is off Precedex, sitting at a bedside chair, not in any distress, still on the alcohol withdrawal protocol. Patient is doing great, and relatively asymptomatic this morning. He is on CIWA protocol labs are unremarkable including normal CBC, normal basic metabolic profile, normal blood sugar. Objective - Vital Signs Vital signs: Vital Signs Temp 98.3 F 03/10/22 08:00 Pulse 85 03/10/22 09:00 Resp 15 03/10/22 09:00 BP 135/90 03/10/22 09:00 Pulse Ox 100 03/10/22 09:00 FiO2 Intake & Output 03/09/22 03/10/22 03/10/22 18:59 06:59 18:59 Intake Total 2113.431 1184.505 575 Output Total 1355 1295 450 Balance 758.431 -110.495 125 Weight 74.5 kg Intake: IV 900 900 75 Mvi, Adult No.4 with Vit 375 900 75 K 10 ml Thiamine 100 mg Folic Acid 1 mg In Sodium Chloride 0.9% 1,000 ml @ 75 mls/hr IV .BY DURATION [facility] Rx#: [id number] Sodium Chloride 0.9% 1, 525 000 ml @ 75 mls/hr IV .BY DURATION [facility] Rx#: [id number] Intake, IV Titration 213.431 34.505 Amount Dexmedetomidine/0.9% NaCl 213.431 34.505 (Pmx) 400 mcg In Empty Bag 1 bag @ 0.5 MCG/KG/HR 9.072 mls/hr IV .Q11H2M [facility] Rx#:[id number] Oral 1000 250 500 Output: Urine 1355 1295 450 Other: Voiding Method Indwelling Catheter Indwelling Catheter Indwelling Catheter - Exam Physical Exam: Revealed 52-year-old white male in no distress, on room air. Head: Atraumatic, normocephalic HEENT:[Neck is supple.] [No neck masses.] [No thyromegaly.] [No JVD.] Chest: [Clear throughout, no crackles, no rhonchi, no wheezes.] Cardiac Exam: [Normal S1 and S2, no S3 gallop, no murmur.] Abdomen: [Soft, nontender, no megaly, no rebound, no guarding, normal bowel sounds.] Extremities: [No clubbing, no edema, no cyanosis.] Neurological Exam: Alert and oriented 3 no gross focal deficit Psychiatric: Normal mood, affect and normal mental status examination.. Skin: No rashes. - Labs CBC & Chem 7: 03/10/22 03:49 03/10/22 03:49 Labs: Abnormal Lab Results - Last 24 Hours (Table) 03/10/22 03/10/22 Range/Units 03:49 03:49 RBC 3.73 L (4.30-5.90) m/uL MCV 106.0 H (80.0-100.0) fL MCH 35.6 H (25.0-35.0) pg Lymphocytes # 0.9 L (1.0-4.8) k/uL BUN 6 L (9-20) mg/dL Creatinine 0.59 L (0.66-1.25) mg/dL Total Bilirubin 1.4 H (0.2-1.3) mg/dL ALT 50 H (4-49) U/L Assessment and Plan Assessment: Impression: Acute delirium tremens secondary to alcohol withdrawal History of alcoholism History of atrial flutter History of obsessive-compulsive disorder Dyslipidemia Recommendation: Transfer the patient out to regular medical floor Continue CIWA protocol. Continue Lovenox and Protonix Continue Seroquel at bedtime 50 mg Will follow as needed Time with Patient: Less than 30
[2022-03-10] MEDS: QUEtiapine 50 MG TAB PO SCH (20:14)
--- NOTE | 2022-03-10 22:50 | P.PN ---
Subjective This is a pleasant 52 years old male with no significant past medical history. Patient was sent from [facility] for alcohol abuse and hallucination. Patient was lying in bed comfortable, sleepy and drowsy and he has received benzodiazepine in the morning shortly before meeting him which may contribute to his sleepiness. Patient himself states that he is been [facility] for the last 23 days for alcohol withdrawal. He states that he drinks 3-4 drinks a day. He denies smoking or illicit tracts to me. He denies any chest pain or dyspnea. No headache or dizziness. No weakness or numbness complaints when I saw him. No blurred vision. He is been complaining of from slight primary umbilical abdominal pain about 1- 2/10 in severity this morning but completely resolved by the time I saw him. Abdomen soft. His been complained from some constipation but no vomiting and he tolerates diet. No urinary complaints like urgency or dysuria. On reviewing the record from [facility] (patient has been feeling good with no symptoms. Patient has been complaining of from hallucination, branch of a spider is running around and when he turned on the line they disappeared. Also he saw ago under his bed and treated that he can touch. Also has been complaining that his hands has been turning into green color and then go back to their original color when the lights are turned on. Patient so more stress as well as well as an understandable auditory hallucination, he developed heard the word murder Labs showing normal WBCs 4.0 hemoglobin 12.8. Platelet count normal 226. Sodium 134. Risks of BMP is unremarkable Bilirubin 1.3 which is within the reference range. Slightly elevated liver enzymes AST 71 and ALT 61. Lipase normal at 188. Serum alcohol less than 10. Patient was started on CIWA protocol in ED 03/07/2022 Patient today still undergoing alcohol withdrawal, his CIWA protocol and a scar in the afternoon was 18 although it was less in the morning when he was more, and working his room. Patient condition did not improve with the Ativan IV and he was agitated and confused trying to eat lobe and get out of bed and because of safety we gave him IV Valium. We'll continue close monitoring Repeat labs looks stable at liver enzymes are the same or slightly better. Psychiatric team already evaluated the patient yesterday and they recommended no further psychiatric care and no need for psychiatric medication other than a lcohol withdrawal treatment he's receiving currently. Looks like his hallucination is related to his alcohol withdrawal 03/08/2022 Patient was very agitated today very confused, out of control, Mr. Jackson was called for him 3 times overnight and twice in the morning despite multiple medications Patient was getting Ativan when necessary per protocol, also increasing dose of volume 5 mg every 4 hours and Benadryl when necessary Presents have to be placed for him for safety for self and others Staff felt hard for them to deal with the patient while on the general floor, patient was sent to the intensive care unit with pulmonary/critical care team consult 03/09/2022 Patient is awake alert, she was confused and disoriented to place, patient was updated upon the location however he is oriented about the year, person and his illness He looks lethargic and got combative at times. History of sterile symptoms looks well controlled with Precedex and other medication Continue with CIWA protocol and pain 03/10/2022 Patient is more, cooperative today and he follows commands appropriately He slept well last night He denies any physical symptoms like chest pain or dyspnea Continue with CIWA protocol and volume as needed Patient comfort transferred out of the ICU today Objective - Vital Signs Vital signs: Vital Signs Temp 98.3 F 03/10/22 08:00 Pulse 85 03/10/22 09:00 Resp 15 03/10/22 09:00 BP 135/90 03/10/22 09:00 Pulse Ox 100 03/10/22 09:00 FiO2 Intake & Output 03/09/22 03/10/22 03/10/22 18:59 06:59 18:59 Intake Total 2113.431 1184.505 575 Output Total 1355 1295 450 Balance 758.431 -110.495 125 Weight 74.5 kg Intake: IV 900 900 75 Mvi, Adult No.4 with Vit 375 900 75 K 10 ml Thiamine 100 mg Folic Acid 1 mg In Sodium Chloride 0.9% 1,000 ml @ 75 mls/hr IV .BY DURATION [facility] Rx#: [id number] Sodium Chloride 0.9% 1, 525 000 ml @ 75 mls/hr IV .BY DURATION [facility] Rx#: [id number] Intake, IV Titration 213.431 34.505 Amount Dexmedetomidine/0.9% NaCl 213.431 34.505 (Pmx) 400 mcg In Empty Bag 1 bag @ 0.5 MCG/KG/HR 9.072 mls/hr IV .Q11H2M [facility] Rx#:[id number] Oral 1000 250 500 Output: Urine 1355 1295 450 Other: Voiding Method Indwelling Catheter Indwelling Catheter Indwelling Catheter - Exam --GENERAL: The patient is confused and agitated, combative at times, has to be restrained at sometimes HEENT: Pupils are round and equally reacting to light. EOMI. No scleral icterus. No conjunctival pallor. Normocephalic, atraumatic. No pharyngeal erythema. No thyromegaly. CARDIOVASCULAR: S1 and S2 present. No murmurs, rubs, or gallops. PULMONARY: Chest is clear to auscultation, no wheezing or crackles. ABDOMEN: Soft, nontender, nondistended, normoactive bowel sounds. No palpable organomegaly. MUSCULOSKELETAL: No joint swelling or deformity. -EXTREMITIES: No cyanosis, clubbing, or pedal edema. Tremor NEUROLOGICAL: Gross neurological examination did not reveal any focal deficits. SKIN: No rashes. no petechiae. - Labs CBC & Chem 7: 03/10/22 03:49 03/10/22 03:49 Labs: Abnormal Lab Results - Last 24 Hours (Table) 03/10/22 03/10/22 Range/Units 03:49 03:49 RBC 3.73 L (4.30-5.90) m/uL MCV 106.0 H (80.0-100.0) fL MCH 35.6 H (25.0-35.0) pg Lymphocytes # 0.9 L (1.0-4.8) k/uL BUN 6 L (9-20) mg/dL Creatinine 0.59 L (0.66-1.25) mg/dL Total Bilirubin 1.4 H (0.2-1.3) mg/dL ALT 50 H (4-49) U/L Assessment and Plan Assessment: Severe Delirium tremens with agitation Visual and auditory hallucinations, related to alcohol withdrawal Alcohol abuse at-risk of alcohol withdrawal and delirium tremens Moderately elevated liver enzymes most likely secondary to alcoholic affect possible Hypertension Plan: This is a pleasant 52 years old male with alcoholic intoxication Continue with CIWA protocol. Add diazepam IV when necessary Continue with gentle hydration Send patient to the ICU with critical care consult Psychiatry consult is appreciated, no further psychotic input perinatal social worker consult Labs and medication were reviewed.. Continue same treatment. Continue with symptomatic treatment. Resume home medication. Monitor lytes and vitals. DVT and GI prophylaxis. Further recommendations as per clinical course of the patient DVT prophylaxis: Subcutaneous Lovenox GI Prophylaxis: Ppi Prognosis is guarded
[2022-03-11 02:10] VITALS: RESP 16
[2022-03-11 04:06] LABS: Basophils % (A) 0 %; Eosinophils # (A) 0.1 k/uL (0-0.7); Eosinophils % (A) 2 %; HGB 12.2 gm/dL (13.0-17.5); Lymphocytes # (A) 1.1 k/uL (1.0-4.8); Lymphocytes % (A) 20 %; MCH 34.9 pg (25.0-35.0); MCV 102.7 fL (80.0-100.0); Macrocytosis Slight; Mean Platelet Volume 8.9; Monocytes # (A) 0.5 k/uL (0-1.0); Monocytes % (A) 9 %; Neutrophils # (A) 3.6 k/uL (1.3-7.7); Neutrophils % (A) 64 %; Platelet Count 252 k/uL (150-450); RBC 3.51 m/uL (4.30-5.90); RDW 12.3 % (11.5-15.5); WBC 5.6 k/uL (3.8-10.6)
[2022-03-11 04:39] LABS: ALT 38 U/L (4-49); AST 29 U/L (17-59); African American GFR (CKD) >90 (>60 ml/min/1.73 sqM); Albumin 3.7 g/dL (3.5-5.0); Alkaline Phosphatase 49 U/L (38-126); Anion Gap 11 mmol/L; Blood Urea Nitrogen 4 mg/dL (9-20); Calcium 8.9 mg/dL (8.4-10.2); Carbon Dioxide 23 mmol/L (22-30); Chloride 104 mmol/L (98-107); Glucose 81 mg/dL (74-99); Non-African American GFR(CKD) >90 (>60 ml/min/1.73 sqM); Potassium 3.6 mmol/L (3.5-5.1); Sodium 138 mmol/L (137-145); Total Bilirubin 0.6 mg/dL (0.2-1.3); Total Protein 6.3 g/dL (6.3-8.2)
[2022-03-11] MEDS: 1: MVI, ADULT NO.4 WITH VIT K 10 ML, THIAMINE 100 MG, FOLIC ACID 1 MG in SODIUM CHLORIDE IV SCH ×4 (05:50)
[2022-03-11] MEDS: NICOTINE 21MG/24HR PATCH TRANSDERM SCH (08:29)
[2022-03-11] MEDS: cloNIDine HCL 0.1 MG TAB PO SCH (08:30)
[2022-03-11] MEDS: ENOXAPARIN 40 MG/0.4 ML SYRINGE SQ SCH (08:30)
[2022-03-11] MEDS: PANTOPRAZOLE 40 MG/10 ML VIAL IVP SCH (08:30)
[2022-03-11 09:51] VITALS: BP 146/111; PULSE 83; TEMP 98.1
--- NOTE | 2022-03-11 12:14 | P.PN ---
Subjective Progress Note Date: 03/11/22 Principal diagnosis: Acute delirium tremens secondary to alcohol withdrawal A 52-year-old male patient who got transferredn To the intensive care unit because of difficulties taking care of this patient on the floor, as the patient was significantly agitated and has required a total of 2 mg of Ativan, Valium 5 mg of Valium and 25 mg of Benadryl. He was significantly agitated and restless and he was placed in restraints and he was brought into the intensive care unit. The patient was placed as he will protocol. He became progressively more violent and agitated and he got transferred to the intensive care unit. He is hemodynamically stable. He is on room air oxygen. His blood work from yesterday shows a white cell count of 5.3 with a hemoglobin of 15.4 and a plate let count of 274, electrolytes are all within normal limits, alcohol level is low, less than 10, denies having any other substance abuse, LFTs show an AST of 60, ALT of 64 and bilirubin of 0.9. Magnesium levels at 1.9. He is currently on Catapres 0.1 mg daily, Valium 5 mg every 4 hours when necessary, Benadryl 25 mg every 8 hours when necessary, folic acid 1 mg by mouth daily, Ativan per protocol and is also on Seroquel 25 mg at bedtime and vitamin B-1 Reevaluated today on , patient remains in the ICU, sedated, he is on Precedex at 1.2 mcg/kg/h, he is on the alcohol withdrawal protocol, patient is on room air, does not seem to be in any distress, and his delirium is quite under control with Precedex. CBC is relatively normal electrocerebral normal renal profile is normal Reevaluated today on 03/10/22, patient is in the ICU, he is off Precedex, sitting at a bedside chair, not in any distress, still on the alcohol withdrawal protocol. Patient is doing great, and relatively asymptomatic this morning. He is on CIWA protocol labs are unremarkable including normal CBC, normal basic metabolic profile, normal blood sugar. Reevaluated today on 03/11/22, patient remains in the ICU, he is an overflow, doing well, remains off Precedex. Patient remains on the alcohol withdrawal protocol/CIWA protocol. And the plan is to possibly transfer the patient today to [place]. Patient is medically stable for transfer or discharge. Admitting physician to consider this transfer sometime today. Objective - Vital Signs Vital signs: Vital Signs Temp 98.1 F 03/11/22 08:15 Pulse 83 03/11/22 08:15 Resp 16 03/11/22 08:15 BP 146/111 03/11/22 08:15 Pulse Ox 99 03/11/22 08:15 FiO2 Intake & Output 03/10/22 03/11/22 03/11/22 18:59 06:59 18:59 Intake Total 2300 900 Output Total 450 Balance 1850 900 Intake: IV 300 900 Mvi, Adult No.4 with Vit 300 825 K 10 ml Thiamine 100 mg Folic Acid 1 mg In Sodium Chloride 0.9% 1,000 ml @ 75 mls/hr IV .BY DURATION [facility] Rx#: [id number] Sodium Chloride 0.9% 1, 75 000 ml @ 75 mls/hr IV .BY DURATION [facility] Rx#: [id number] Intake, IV Titration 1000 Amount Sodium Chloride 0.9% 1, 1000 000 ml @ 75 mls/hr IV .BY DURATION [facility] Rx#: [id number] Oral 1000 Output: Urine 450 Other: Voiding Method Indwelling Catheter Indwelling Catheter # Voids 3 8 - Exam Physical Exam: Revealed 52-year-old white male in no distress, on room air. Head: Atraumatic, normocephalic HEENT:[Neck is supple.] [No neck masses.] [No thyromegaly.] [No JVD.] Chest: [Clear throughout, no crackles, no rhonchi, no wheezes.] Cardiac Exam: [Normal S1 and S2, no S3 gallop, no murmur.] Abdomen: [Soft, nontender, no megaly, no rebound, no guarding, normal bowel [place]il[place] nds.] Extremities: [No clubbing, no edema, no cyanosis.] Neurological Exam: Alert and oriented 3 no gross focal deficit Psychiatric: Normal mood, affect and normal mental status examination.. Skin: No rashes. - Labs CBC & Chem 7: 03/11/22 03:16 03/11/22 03:16 Labs: Abnormal Lab Results - Last 24 Hours (Table) 03/11/22 03/11/22 Range/Units 03:16 03:16 RBC 3.51 L (4.30-5.90) m/uL Hgb 12.2 L (13.0-17.5) gm/dL Hct 36.0 L (39.0-53.0) % MCV 102.7 H (80.0-100.0) fL BUN 4 L (9-20) mg/dL Creatinine 0.52 L (0.66-1.25) mg/dL Assessment and Plan Assessment: Impression: Acute delirium tremens secondary to alcohol withdrawal History of alcoholism History of atrial flutter History of obsessive-compulsive disorder Dyslipidemia Recommendation: Continue CIWA protocol Consider transfer to [place] for rehabilitation Continue Seroquel at bedtime 50 mg Will follow as needed Time with Patient: Less than 30
[2022-03-11 13:04] VITALS: BMI 22.8
--- NOTE | 2022-03-12 00:34 | P.DS ---
Providers Date of admission: 03/06/22 04:20 Attending physician: Alejo Mistyr Consults: 03/06/22 09:28 Consult Physician Urgent Consulting Provider: Manuel Oneal Consult Reason/Comments: Hallucination, alcoholism Do you want consulting provider notified?: Yes Placement Type Exists?: Yes 03/08/22 09:13 Consult Physician Urgent Consulting Provider: Fernando Huber Consult Reason/Comments: DT Do you want consulting provider notified?: Yes Placement Type Exists?: Yes Primary care physician: Stated None Hospital Course: Diagnoses: Severe Delirium tremens with agitation Visual and auditory hallucinations, related to alcohol withdrawal Alcohol abuse at-risk of alcohol withdrawal and delirium tremens Moderately elevated liver enzymes most likely secondary to alcoholic affect possible Hypertension Hospital course: This is a pleasant 52 years old male with no significant past medical history. Patient was sent from [place] for alcohol abuse and hallucination.. Patient evaluated by psychiatrist, his hallucination was due to his alcohol withdrawal and he recommended to continue with same treatment of CIWA protocol and thiamine. However N one day later on patient developed severe delirium tremens symptoms and he was agitated and hard to control and patient has to be restrained more than once for safety and he received multiple medications and benzodiazepines. Eventually patient has to be transferred to the ICU where he received Precedex. Eventually patient woke up and he was called for more than 24 hours. No more agitation and no more withdrawal symptoms. Fully awake and oriented and he was doing great. He tolerates diet well 100%. No abdominal pain or vomiting or diarrhea. No urinary complaints. No weakness or numbness. Patient was cleared for discharge by pulmonary service and psychiatrist. Patient will be discharged on Seroquel Patient also wanted to go back to [facility]. rn called [facility] and they will pick him up today. Problems and management plan were discussed with the patient and he verbalized understanding and acceptance Patient was found stable and can be discharged home however he needs follow-up as an outpatient. Patient was instructed to follow up with PCP within one week and patient agrees Physical exam Gen: patient is a AAOx3, no distress CVS: S1-S2, RRR, no murmur Lungs: B/L CTA, no wheezing Abdomen: soft, no distention, no tenderness, positive bowel sounds Extremity: no leg edema or induration Time spent more than 35 minutes Patient Condition at Discharge: Good Plan - Discharge Summary Discharge Rx Participant: Yes New Discharge Prescriptions: New QUEtiapine [SEROquel] 50 mg PO HS #30 tab Continue Thiamine [Vitamin B-1] 100 mg PO DAILY Acetaminophen Tab [Tylenol] 650 mg PO TID Multivitamins, Thera [Multivitamin (formulary)] 1 tab PO DAILY Magnesium Hydroxide [Milk of Magnesia] 2,400 mg PO BID PRN PRN Reason: Constipation cloNIDine HCL [Catapres] 0.1 - 0.3 mg PO DAILY PRN PRN Reason: Hypertension Chlorpheniramine Maleate [Chlor-Trimeton] 4 mg PO QID PRN PRN Reason: Allergy Symptoms Calcium Carb/Mag Ox/Zinc Sulf [Wjj-Udq-Heni 334-134-5 mg Tab] 1 tab PO TID Ibuprofen [Motrin Ib] 600 mg PO Q6H PRN 3 Days #0 PRN Reason: Pain Or Fever > 100.5 Changed LORazepam [Ativan] 1 - 2 mg PO Q4H PRN #0 PRN Reason: Alcohol Withdrawal Discontinued ondansetron HCL [Zofran] 8 mg PO Q6H Loperamide HCl [Imodium A-D] 4 mg PO QID PRN PRN Reason: Diarrhea No Action Mylanta 30 ml PO Q4H PRN PRN Reason: antiacid Discharge Medication List Acetaminophen Tab [Tylenol] 650 mg PO TID 03/06/22 [History] Calcium Carb/Mag Ox/Zinc Sulf [Osi-Tkg-Jplb 334-134-5 mg Tab] 1 tab PO TID 03/06/22 [History] Chlorpheniramine Maleate [Chlor-Trimeton] 4 mg PO QID PRN 03/06/22 [History] Magnesium Hydroxide [Milk of Magnesia] 2,400 mg PO BID PRN 03/06/22 [History] Multivitamins, Thera [Multivitamin (formulary)] 1 tab PO DAILY 03/06/22 [History] Mylanta 30 ml PO Q4H PRN 03/06/22 [History] Thiamine [Vitamin B-1] 100 mg PO DAILY 03/06/22 [History] cloNIDine HCL [Catapres] 0.1 - 0.3 mg PO DAILY PRN 03/06/22 [History] Ibuprofen [Motrin Ib] 600 mg PO Q6H PRN 3 Days #0 03/11/22 [Rx] LORazepam [Ativan] 1 - 2 mg PO Q4H PRN #0 03/11/22 [Rx] QUEtiapine [SEROquel] 50 mg PO HS #30 tab 03/11/22 [Rx] Follow up Appointment(s)/Referral(s): None,Stated [Primary Care Provider] - 1 Week Activity/Diet/Wound Care/Special Instructions: Please return to [facility] upon discharge. We recommend to follow up with her primary care doctor in 1 week after discharge, if you don't have primary care doctor then we recommend to call your medical insurance provider to find a nearby primary care doctor and call and make an appointment within 1 week Discharge Disposition: HOME SELF-CARE
== END 2022-03-11 15:06 | disposition home or self-care (01) | DRG 897 ==
LOC: EC 01:27 → 4SSUR 04:20 → 2SICU 03-08 10:16
PROVIDERS: ADMIT Hospitalist; ATTEND Hospitalist
DX: F10.231 Alcohol dependence with withdrawal delirium (principal); I48.92 Unspecified atrial flutter; J43.9 Emphysema, unspecified; K59.00 Constipation, unspecified; Y90.0 Blood alcohol level of less than 20 mg/100 ml; E78.5 Hyperlipidemia, unspecified; F42.9 Obsessive-compulsive disorder, unspecified; Z28.310 Unvaccinated for COVID-19; Z79.899 Other long term (current) drug therapy; Z78.1 Physical restraint status
CPT/HCPCS: 80048; 80053; 80076; 80320; 82140; 83690; 83735; 84100; 85025; 96372; 96374; 99285